=== PATIENT | female | born 1935 | race Caucasian/White ===

== ENCOUNTER 2016-08-06 08:32 | Day surgery (SDC) | payer MEDICARE ==
[~2016-08-06] VITALS: Ht 167.6 cm; Wt 52.0 kg
[~2016-08-06 08:32] MED LIST: ACET650S13 PR; AMLO-320 PO; CLOP75TA28 PO; DOXY20TA5 PO; FAMO20TA3 PO; HYDR-3702 PO; HYDR1POW18 MC; LACTATED RINGERS 1,000 ML IV SCH; LIDOCAINE/EPINEPHRINE 1%-1:100,000 (XYLOCAINE) 20ML VIAL ONE; LORA-714 PO; MAGN400O7 PO; METO25PO2 MC; NAPR220C16 PO; PSYL0.5211 PO; SERT100T8 PO; SODIUM CHLORIDE FLUSH 3 ML SYR IV PRN; SPRN25T PO; TRAZ-28 PO; VITA1TAB17 PO; [UNRECOGNIZED DRUG - CODE] PO
--- OUTSIDE RECORDS SUMMARY | 2016-08-06 08:37 | XMS REPORT | Summary of Care ---
Author Author Gurpreet Mitchell M.D. Organization Unknown Address Unknown Phone Unavailable Care Team Providers Care Soaker Meat Name Role Phone Gurpreet Mitchell M.D. 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, G40.A09) Status: Active Left rotator cuff tear arthropathy (716.81, M12.812) Status: Active Hemorrhoids (455.6, K64.9) Status: Active Constipation (564.00, K59.00) Status: Active Shoulder pain (719.41, M25.519) Status: Active Scoliosis (and kyphoscoliosis), idiopathic (737.30, M41.20) Status: Active Recurrent UTI (urinary tract infection) (599.0, N39.0) Status: Active Atrial fibrillation (427.31, I48.91) Status: Active Dyslipidemia (272.4, E78.5) Status: Active Hypertension (401.9, I10) Status: Active Renal insufficiency (593.9, N28.9) Status: Active Nausea (787.02, R11.0) Status: Active Shortness of breath on exertion (786.05, R06.02) Status: Active Diverticulitis (562.11, K57.92) Status: Active 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 Quantity: 30 Refills: 6 Paula M.D., Gurpreet Start 11-Jul-2015 Active Spironolactone 25 MG Oral Tablet TAKE 1 TABLET DAILY. Refills: 0 Eagle M.D., Gurpreet Start 11-Jul-2015 Active Sertraline HCl - 50 MG Oral Tablet TAKE 3 TABLETS(150MG) BY MOUTH EVERY DAY Quantity: 90 Refills: 11 Eagle M.D., Gurpreet Start 11-Jan-2016 Active Amlodipine-Atorvastatin 10-10 MG Oral Tablet TAKE 1 TABLET DAILY. Quantity: 30 Refills: 6 Eagle M.D., Gurpreet Start 11-Jul-2015 Active LamoTRIgine 100 MG Oral Tablet TAKE TABLET Take 2 tabs in a.m. and 1 tab at HS Quantity: 90 Refills: 6 Paula M.D., Gurpreet Start 11-Jul-2015 Active Lisinopril 20 MG Oral Tablet TAKE 1 TABLET TWICE DAILY. Quantity: 60 Refills: 11 Paula M.D., Gurpreet Start 11-Jul-2015 Active Metamucil 30.9 % POWD Refills: 0 Paula M.D., Gurpreet Start 11-Jul-2015 Active TraZODone HCl - 50 MG Oral Tablet TAKE 1 TABLET BY MOUTH EVERY NIGHT AT BEDTIME Quantity: 90 Refills: 3 Paula M.D., Gurpreet Start 11-Jul-2015 Active Metoprolol Tartrate 25 MG Oral Tablet TAKE 1 TABLET TWICE DAILY. Refills: 0 Paula M.D., Gurpreet Start 11-Jul-2015 Active Tums 500 MG Oral Tablet Chewable TAKE TABLET Chew one QID Refills: 0 Paula M.D., Gurpreet Start 11-Jul-2015 Active Anusol-HC 2.5 % Rectal Cream USE DIRECTED. Refills: 0 Eagle M.D., Gurpreet Start 11-Jul-2015 Active Aleve 220 MG Oral Tablet TAKE 1 TABLET EVERY 12 HOURS DAILY. Refills: 0 Eagle M.D., Gurpreet Start 11-Jul-2015 Active Montelukast Sodium 10 MG Oral Tablet TAKE 1 TABLET BY MOUTH DAILY NEEDED FOR ALLERGIES Quantity: 30 Refills: 6 Paula M.D., Gurpreet Start 05-Aug-2015 Active Doxycycline Hyclate 100 MG Oral Tablet TAKE 1 TABLET BY MOUTH DAILY Quantity: 30 Refills: 11 Paula M.D., Gurpreet Start Active Ciprofloxacin HCl - 500 MG Oral Tablet Take 1 tablet twice daily Quantity: 20 Refills: 0 Eagle M.D., Gurpreet Start 18-Mar-2016 Active MetroNIDAZOLE 500 MG Oral Tablet 1 PO QID until finished Quantity: 40 Refills: 0 Eagle M.D., Gurpreet Start 18-Mar-2016 Active Ondansetron 4 MG Oral Tablet Dispersible TAKE 1 TABLET Every 3 hours PRN nausea and vomiting Quantity: 20 Refills: 2 Paula M.D., Gurpreet Start 18-Mar-2016 Active Azelastine HCl - 0.15 % Nasal Solution 2 puffs BID Quantity: 1 Refills: 4 Paula M.D., Gurpreet Start 05-Apr-2016 Active 30 ML [place] Btl Allergies and Adverse Reactions Name Dates Details Benadryl (Allergy) Status: Active CeleBREX CAPS (Allergy) Status: Active Erythromycin Base TABS (Allergy) Status: Active Sulfa Drugs (Allergy) Status: Active Past Medical History Name Dates Details Hypertension (401.9, I10) Status: Active History of Bipolar illness (296.80, F31.9) Status: Resolved History of Chronic pain (338.29, G89.29) Status: Resolved History of malignant neoplasm of breast (V10.3, Z85.3) Status: Resolved History of mammogram (V15.89, Z92.89) Status: Resolved History of rotator cuff tear (V13.59, Z87.39) Status: Resolved History of Seizure, petit mal (345.00, G40.A09) Status: Resolved History of transient cerebral ischemia (V12.54, Z86.73) Status: Resolved Procedures Procedure Dates Details History of Appendectomy History of Tonsillectomy With Adenoidectomy History of Shoulder Arthroplasty Total Shoulder Replacement History of Hysterectomy History of Breast Surgery Lumpectomy History of Stapes Mobilization - Left Ear Procedures not documented Immunization Name Dates Details Immunizations not documented Family History Name Dates Details Family history of congestive heart failure (V17.49, Z82.49) Status: Active Family history of Coronary artery disease (414.00, I25.10) Status: Active Name Dates Details Family history of cerebrovascular accident (CVA) (V17.1, Z82.3) Status: Active Name Dates Details Family history of scoliosis (V17.89, Z82.69) Status: Active Social History Name Dates Details Unknown if ever smoked Vital Signs Date Test Result Details 05-Apr-2016 14:19 BP Systolic 136 mm[Hg] Status: Comments: Location: ; Position: BP Diastolic 72 mm[Hg] Status: Comments: Location: ; Position: Temperature 97.9 f Status: Comments: Method: Heart Rate 68 /min Status: Comments: Location: ; Weight 121 lb Status: Physical Findings 95 Status: Comments: O2 Saturation Body Mass Index Calculated 21.31 kg/m2 Status: Body Surface Area Calculated 1.57 m2 Status: 18-Mar-2016 15:27 BP Systolic 112 mm[Hg] Status: Comments: Location: ; Position: BP Diastolic 70 mm[Hg] Status: Comments: Location: ; Position: Temperature 99 f Status: Comments: Method: Heart Rate 56 /min Status: Comments: Location: ; Weight 122 lb Status: Physical Findings 97 Status: Comments: O2 Saturation Body Mass Index Calculated 21.48 kg/m2 Status: Body Surface Area Calculated 1.57 m2 Status: 18-Mar-2016 14:46 BP Systolic 112 mm[Hg] Status: Comments: Location: LUE; Position: Sitting BP Diastolic 70 mm[Hg] Status: Comments: Location: LUE; Position: Sitting Temperature 99 f Status: Comments: Method: Tympanic Heart Rate 56 /min Status: Comments: Location: ; Weight 122 lb Status: Physical Findings 97 Status: Comments: O2 Saturation Body Mass Index Calculated 21.48 kg/m2 Status: Body Surface Area Calculated 1.57 m2 Status: Results Date Description Value Details 18-Mar-2016 16:32 XRay ABD Acute (Flat, Upright & PA Chest) Comments: Exam Date: 03/18/2016 15:50Dictation Date: 03/18/2016 16:32 X ACUTE ABD SERIES 01-Apr-2016 14:33 LIPID PROFILE 1184 Comments: Fastin hours CHOLESTEROL 118 mg/dL Range: <200 TRIGLYCERIDES 77 mg/dL Range: 30-200 HDL Cholesterol 37 mg/dL (Below low threshold) Range: >39 NON HDL CHOLESTEROL 81 CARDIAC RSK FACTOR 3.2 units (Below low threshold) Range: 4.4-5.0 LDL - CALCULATED 66 mg/dL Range: 0-130 14:46 BASIC METABOLIC PROFILE 1210 Comments: Fastin hours SODIUM 134 mmol/L Range: 133-144 POTASSIUM 3.6 mmol/L Range: 3.5-5.1 CHLORIDE 98 mmol/L Range: 98-110 CARBON DIOXIDE 26.1 mmol/L Range: 23.0-33.0 ANION GAP 10 mmol/L Range: 6-16 BUN 14 mg/dL Range: 7-18 CREATININE, SERUM 0.77 mg/dL Range: 0.55-1.02 EST GFR, >60 ml/min Range: >60 EST GFR, NON-[place]FR CITIZEN OF [place] >60 ml/min Range: >60 Comments: EST GFR is reported in ml/min per 1.73 m2 of body surface area. ----- BUN:CREATININE RATIO 18 GLUCOSE 84 mg/dL Range: 70-100 CALCIUM 8.8 mg/dL Range: 8.5-10.1 Plan of Care Name Dates Details Planned Observations Planned Goals not documented Interventions Provided Medication ChangesAzelastine HCl - 0.15 % Nasal Solution - Start Instructions Name Dates Details Instructions not documented Encounters Appointment; Gurpreet Mitchell M.D. Encounter Diagnosis: Problem not documented On 18-Mar-2016 14:45 Appointment; Gurpreet Mitchell M.D. Encounter Diagnosis: Problem not documented On 01-Dec-2015 13:45 Appointment; Gurpreet Mitchell M.D. Encounter Diagnosis: Problem not documented On 14:45 Appointment; Gurpreet Mitchell M.D. Encounter Diagnosis: Problem not documented On 05-Aug-2015 13:45
[2016-08-06 08:46] VITALS: BP 156/72
[2016-08-06] MEDS ORDERED: LIDOCAINE/EPINEPHRINE 1% 1:100,000 (XYLOCAINE) 30 ML VIAL INJ ONE (09:33)
[2016-08-06] MEDS ORDERED: ALFENTANIL 500 MCG/ML (ALFENTA) 5 ML AMP IV ONE (10:17)
[2016-08-06] MEDS ORDERED: MIDAZOLAM 2 MG/2 ML (VERSED) VIAL ONE (10:17)
[2016-08-06] MEDS ORDERED: PROPOFOL 20 ML IV ONE (10:18)
[2016-08-06] MEDS ORDERED: ONDANSETRON 2 MG/ML (Z0FRAN) 2 ML VIAL ONE (10:56)
[2016-08-06] MEDS ORDERED: FLUMAZENIL (ROMAZICON) 0.1 MG/ML 5 ML VIAL ONE (11:21)
[2016-08-06 11:30] VITALS: BP 122/68
[2016-08-06 11:50] VITALS: BP_SYST 122; BP_SYST 138; BP_DIAS 68; BP_DIAS 75
[2016-08-06 12:00] VITALS: BP 150/81
[2016-08-06 12:30] VITALS: BP 138/75
[2016-08-06 13:04] VITALS: BP 138/75
--- NOTE | 2016-08-06 13:26 | OPERATIVE REPORT ---
DATE OF OPERATION: 08/06/2016 PRE-OPERATIVE DIAGNOSIS: Reducible ventral hernia POST-OPERATIVE DIAGNOSIS: Reducible ventral hernia OPERATIVE PROCEDURE: Ventral hernia repair with mesh SURGEON: Eugenio Banda MD RECREATIONAL SPECIALIST: YOVANI Persaud ANESTHESIA: Monitored anesthesia care with local INDICATION: The patient is an 81-year-old referred by Dr. Mitchell with a ventral hernia just below the umbilicus in the midline, which has been somewhat symptomatic, but reducible. She presents today for elective repair. DESCRIPTION OF PROCEDURE: The patient was informed of the risks and benefits and agreed to proceed. She was taken to the operating room and placed supine on a standard operating table. She was administered IV sedation, when properly sedated her abdomen was prepped and draped in the standard sterile fashion. Lidocaine 1% with epinephrine was injected over the palpable hernia, which was located about 2 to 3 cm below the umbilicus in the midline. Once the skin was anesthetized, a vertical incision measuring about 5 cm was created with the #15 blade scalpel. Dissection was carried forth carefully into the subcutaneous tissue with electrocautery and gentle blunt dissection was used to identify the underlying hernia sac. Adhesions to the sac were divided with cautery and the fascial edges were delineated. The hernia contents were tucked into the peritoneal cavity through the defect, which measured about 20 mm in diameter and was almost perfectly round. The preperitoneal space was cleared using gentle blunt dissection and careful cautery, creating a space for a mesh patch. A small Ventralex mesh patch was then placed in the preperitoneal space through defect. The defect was scored with cautery at its edges and then closely transversely with interrupted 2-0 Prolene, incorporating the underlying mesh into the sutures. The subcutaneous space was reapproximated with interrupted 3-0 Vicryl and the skin was closed with subcuticular 4-0 Monocryl. Dressings were applied. The patient tolerated the procedure without complications.
== END 2016-08-06 13:10 | disposition home or self-care (01) ==
LOC: ASC 08:32
PROVIDERS: ATTEND Surgery
DX: K43.9 Ventral hernia without obstruction or gangrene (principal); I10 Essential (primary) hypertension; Z85.3 Personal history of malignant neoplasm of breast; F32.9 Major depressive disorder, single episode, unspecified; K21.9 Gastro-esophageal reflux disease without esophagitis; Z79.02 Long term (current) use of antithrombotics/antiplatelets; Z86.73 Personal history of transient ischemic attack (TIA), and cerebral infarction without residual deficits
CPT/HCPCS: 36415; 49560; 49568; 84132; C1781; J2250; J2405; J3490